=== PATIENT | female | born 1990 | race American Indian/Alaskan Native ===

== ENCOUNTER 2019-06-07 14:22 | Emergency (ER) | payer SELFPAY ==
--- NOTE | 2019-06-07 14:32 | Emergency Department Report ---
Blank Doc - Documentation Documentation: 29-year-old female that presents with syncopal episode with n/v and cough. This initial assessment/diagnostic orders/clinical plan/treatment(s) is/are subject to change based on patient's health status, clinical progression and re- assessment by fellow clinical providers in the ED. Further treatment and workup at subsequent clinical providers discretion. Patient/guardians urged not to elope from the ED as their condition may be serious if not clinically assessed and managed. Initial orders include: 1- Patient sent to [facility] for further evaluation and treatment 2- labs 3- EKG 4- CXR
[2019-06-07 14:33] VITALS: BP 116/85
[2019-06-07 15:17] LABS: Basophils % (Auto) 0.4 % (0.0-1.8); Eosinophils % (Auto) 0.5 % (0.0-4.3); Hematocrit 42.8 % (30.3-42.9); Hemoglobin 14.1 gm/dl (10.1-14.3); Lymphocytes # (Auto) 1.2 K/mm3 (1.2-5.4); Lymphocytes % (Auto) 16.7 % (13.4-35.0); Mean Corpuscular HGB Conc 33 % (30-34); Mean Corpuscular Volume 87 fl (79-97); Monocytes # (Auto) 0.6 K/mm3 (0.0-0.8); Platelet Count 242 K/mm3 (140-440); Red Blood Count 4.91 M/mm3 (3.65-5.03); Red Cell Distribution Width 14.6 % (13.2-15.2)
[2019-06-07 15:47] LABS: Alanine Aminotransferase 31 units/L (7-56); Albumin 4.5 g/dL (3.9-5); BUN/Creatinine Ratio 17; Blood Urea Nitrogen 12 mg/dL (7-17); Calcium 9.3 mg/dL (8.4-10.2); Hemolysis Index 12
--- NOTE | 2019-06-07 16:13 | XRay Report ---
CHEST 2 VIEWS INDICATION: sycnope. COMPARISON: None FINDINGS: Support devices: None. Heart: Within normal limits. Lungs/pleura: No acute air space or interstitial disease. No pneumothorax. Additional findings: None. IMPRESSION: Normal chest x-ray Signer Name: Ryan Lucas Jr, MD Signed: 06/07/2019 4:08 PM Workstation Name: [id number]
--- NOTE | 2019-06-07 18:31 | Emergency Department Report ---
Minor Respiratory - HPI Chief Complaint: Dizziness Stated Complaint: DIZZY/FAINTED TODAY Time Seen by Provider: 06/07/19 14:31 Duration: 2 Days Minor Respiratory: Yes Rhinorrhea, Yes Able to Tolerate Fluids, Yes Cough, Yes Sick Contacts (Healthcare worker), No Sore Throat, No Ear Pain, No Hemoptysis, No Chest Pain, No Shortness of Breath, No Fever Other History: This is a 29-year-old female here complaining of dizziness and that she fell today without any loss of consciousness. Denies any headache, blurred vision. She said she has dizziness this morning. She reports she has cough for 2 days. Denies any fever or chills. 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 Denies any sore throat or nausea vomiting. Patient reports that she is having allergy symptoms. She does have follow-up primary care. She denies any medical problems. Denies any shortness of breath or chest pain. Denies any nausea vomiting or diarrhea. Denies any abdominal or back pain. Last menstrual period 07/03/2012. Pain is 0/10 ED Review of Systems ROS: Stated complaint: DIZZY/FAINTED TODAY Other details as noted in HPI Constitutional: denies: chills, fever Eyes: denies: eye pain, eye discharge, vision change ENT: congestion (Nasal congestion and runny nose with postnasal drainage). denies: ear pain, throat pain, dental pain Respiratory: cough. denies: shortness of breath, SOB with exertion, SOB at rest, wheezing Cardiovascular: denies: chest pain, palpitations, dyspnea on exertion, edema, syncope Gastrointestinal: denies: abdominal pain, nausea, vomiting, diarrhea, hematemesis, hematochezia Genitourinary: denies: hematuria Musculoskeletal: denies: back pain, joint swelling, arthralgia, myalgia Skin: denies: rash Neurological: other (Dizziness this a.m.). denies: headache ED Past Medical Hx - Past Medical History Previous Medical History?: No Hx Hypertension: No Hx Congestive Heart Failure: No Hx Diabetes: No Hx Deep Vein Thrombosis: No Hx Renal Disease: No Hx Sickle Cell Disease: No Hx Seizures: No Hx Asthma: No Hx COPD: No Hx HIV: No - Surgical History Past Surgical History?: No - Social History Smoking Status: Never Smoker Substance Use Type: None - Medications Home Medications: Home Medications Medication Instructions Recorded Confirmed Last Taken Type Ferrous Sulfate [Feosol 325 MG tab] 325 mg PO BID #60 tablet 04/12/13 Unknown Rx Ibuprofen [Motrin 600 MG tab] 600 mg PO Q6HR #30 tablet 04/12/13 Unknown Rx Diphenoxylate HCl/Atropine 2 each PO QID PRN #12 tablet 05/13/14 Unknown Rx [Lomotil 2.5-0.025 mg Tablet] Promethazine [Phenergan] 25 mg PO Q6H PRN #20 tablet 05/13/14 Unknown Rx Cetirizine HCl [ZyrTEC] 10 mg PO QAM 10 Days #10 capsule 06/07/19 Unknown Rx Minor Respiratory Exam - Exam General: Vital signs noted. No distress. Alert and acting appropriately. This is a 29-year-old female well-nourished well-developed in no acute distress. Patient is nontoxic in appearance HEENT: Yes Moist Mucous Membranes, Yes Rhinorrhea (Pale nasal turbinates), No Pharyngeal Erythema, No Pharyngeal Exudates, No Conjuctival Injection, No Frontal Tenderness, No Maxillary Tenderness Ear: Neither TM Bulge (Bilateral middle ear congestion), Neither TM Erythema, Neither EAC Pain, Neither EAC Discharge Neck: Yes Supple, No Adenopathy Lungs: Yes Good Air Exchange, No Wheezes, No Ronchi, No Stridor, No Cough, No Labored Respirations, No Retractions, No Use of Accessory Muscles, No Other Abnormal Lung Sounds Heart: Yes Regular, No Murmur Abdomen: Yes Normal Bowel Sounds (Nontender to palpate in all quadrants), No Tenderness, No Peritoneal Signs Skin: No Rash, No Edema Neurologic: Alert and oriented, no deficits. Musculoskeletal: Unremarkable. ED Course Vital Signs 06/07/19 14:31 Temperature 98.0 F Pulse Rate 87 Respiratory 15 Rate Blood Pressure 116/85 O2 Sat by Pulse 99 Oximetry - Reevaluation(s) Reevaluation #1: 06/07/19 18:45 Patient stable throughout ED course. Vital signs stable she is afebrile and she is not in any distress. ED Medical Decision Making - Lab Data Result diagrams: 06/07/19 14:45 06/07/19 14:45 Lab Results 06/07/19 06/07/19 06/07/19 Range/Units 14:45 14:45 14:45 WBC 7.4 (4.5-11.0) K/mm3 RBC 4.91 (3.65-5.03) M/mm3 Hgb 14.1 (10.1-14.3) gm/dl Hct 42.8 (30.3-42.9) % MCV 87 (79-97) fl MCH 29 (28-32) pg MCHC 33 (30-34) % RDW 14.6 (13.2-15.2) % Plt Count 242 (140-440) K/mm3 Lymph % (Auto) 16.7 (13.4-35.0) % Wolfe % (Auto) 8.0 H (0.0-7.3) % Eos % (Auto) 0.5 (0.0-4.3) % Baso % (Auto) 0.4 (0.0-1.8) % Lymph # 1.2 (1.2-5.4) K/mm3 Wolfe # 0.6 (0.0-0.8) K/mm3 Eos # 0.0 (0.0-0.4) K/mm3 Baso # 0.0 (0.0-0.1) K/mm3 Seg Neutrophils % 74.4 H (40.0-70.0) % Seg Neutrophils # 5.5 (1.8-7.7) K/mm3 Sodium 140 (137-145) mmol/L Potassium 3.9 (3.6-5.0) mmol/L Chloride 99.6 (98-107) mmol/L Carbon Dioxide 26 (22-30) mmol/L Anion Gap 18 mmol/L BUN 12 (7-17) mg/dL Creatinine 0.7 (0.7-1.2) mg/dL Estimated GFR > 60 ml/min BUN/Creatinine Ratio 17 % Glucose 100 (65-100) mg/dL Calcium 9.3 (8.4-10.2) mg/dL Total Bilirubin 0.30 (0.1-1.2) mg/dL AST 26 (5-40) units/L ALT 31 (7-56) units/L Alkaline Phosphatase 65 (35-129) units/L Total Protein 7.8 (6.3-8.2) g/dL Albumin 4.5 (3.9-5) g/dL Albumin/Globulin Ratio 1.4 % Lipase (13-60) units/L HCG, Qual Negative (Negative) 06/07/19 Range/Units 14:45 WBC (4.5-11.0) K/mm3 RBC (3.65-5.03) M/mm3 Hgb (10.1-14.3) gm/dl Hct (30.3-42.9) % MCV (79-97) fl MCH (28-32) pg MCHC (30-34) % RDW (13.2-15.2) % Plt Count (140-440) K/mm3 Lymph % (Auto) (13.4-35.0) % Wolfe % (Auto) (0.0-7.3) % Eos % (Auto) (0.0-4.3) % Baso % (Auto) (0.0-1.8) % Lymph # (1.2-5.4) K/mm3 Wolfe # (0.0-0.8) K/mm3 Eos # (0.0-0.4) K/mm3 Baso # (0.0-0.1) K/mm3 Seg Neutrophils % (40.0-70.0) % Seg Neutrophils # (1.8-7.7) K/mm3 Sodium (137-145) mmol/L Potassium (3.6-5.0) mmol/L Chloride (98-107) mmol/L Carbon Dioxide (22-30) mmol/L Anion Gap mmol/L BUN (7-17) mg/dL Creatinine (0.7-1.2) mg/dL Estimated GFR ml/min BUN/Creatinine Ratio % Glucose (65-100) mg/dL Calcium (8.4-10.2) mg/dL Total Bilirubin (0.1-1.2) mg/dL AST (5-40) units/L ALT (7-56) units/L Alkaline Phosphatase (35-129) units/L Total Protein (6.3-8.2) g/dL Albumin (3.9-5) g/dL Albumin/Globulin Ratio % Lipase 17 (13-60) units/L HCG, Qual (Negative) - EKG Data -: EKG Interpreted by Me (Attending physician) EKG shows normal: sinus rhythm Rate: normal - EKG Data Interpretation: normal EKG (71 bpm) - Radiology Data Radiology results: report reviewed Chest x-ray dictated by radiologist and report reviewed by myself. No acute findings Findings [facility] [address] [place] [address] XRay Report Signed Patient: ELAN PAINTER MR#: [id number] : 1990 Acct:[id number] Age/Sex: 29 / F ADM Date: 06/07/19 Loc: ED Attending Dr: Ordering Physician: DEWAYNE MERCER NP Date of Service: 06/07/19 Procedure(s): XR chest routine 2V Accession Number(s): [id number] cc: DEWAYNE MERCER NP Fluoro Time In Minutes: CHEST 2 VIEWS INDICATION: sycnope. COMPARISON: None FINDINGS: Support devices: None. Heart: Within normal limits. Lungs/pleura: No acute air space or interstitial disease. No pneumothorax. Additional findings: None. IMPRESSION: Normal chest x-ray Signer Name: Ryan Mayo Jr, MD Signed: 06/07/2019 4:08 PM Workstation Name: [id number] Transcribed By: TTR Dictated By: RYAN MAYO JR, MD Electronically Authenticated By: RYAN MAYO JR, MD Signed Date/Time: 06/07/19 160 DD/ 160 TD/TT: - Medical Decision Making This is a 29-year-old female here for cough and dizziness. Physical findings normal exam except she has nasal turbinates pale with clear drainage and bilateral middle ear with effusion. EKG sinus rhythm at 71 bpm. Chest x-ray dictated by radiologist and reviewed by myself and no acute findings. CBC and chemistries normal. test is negative and urinalysis is stable. Patient with allergic rhinitis. I discussed diagnosis and treatment plan with her and for to follow-up with her primary care doctor and she voiced unders tanding. Discharged home with [facility]. - Differential Diagnosis PNA, bronchitis, URI with cough and congestion, sinusitis, rhinitis Critical care attestation.: If time is entered above; I have spent that time in minutes in the direct care of this critically ill patient, excluding procedure time. ED Disposition Clinical Impression: Cough in adult Rhinitis, allergic Qualifiers: Allergic rhinitis trigger: unspecified Allergic rhinitis seasonality: unspecified Qualified Code(s): J30.9 - Allergic rhinitis, unspecified Disposition: DC-01 TO HOME OR SELFCARE Is pt being admited?: No Does the pt Need Aspirin: No Condition: Stable Instructions: Allergic Rhinitis (ED), Acute Cough (ED) Additional Instructions: If your condition worsens, return to the emergency room please increase her fluid intake. Please follow up with your primary care physician as instructed a Please follow discharge instructions on allergic rhinitis and cough Take medication as instructed See information given on COVID-19. This is for your information Prescriptions: Cetirizine HCl [ZyrTEC] 10 mg PO QAM 10 Days #10 capsule Referrals: PRIMARY CAREMD [Primary Care Provider] - 06/11/19 Forms: Work/School Release Form(ED)
== END 2019-06-07 19:30 | disposition home or self-care (01) ==
LOC: ED 14:22
DX: J30.9 Allergic rhinitis, unspecified (principal); Z88.5 Allergy status to narcotic agent
CPT/HCPCS: 36415; 71046; 80053; 83690; 84703; 85025; 93005; 93010

== ENCOUNTER 2021-10-16 12:21 | Outpatient (CLI) | payer MEDICAID ==
[2021-10-16 13:14] VITALS: BP 113/56
[2021-10-16] MEDS ORDERED: ACETAMINOPHEN 500 MG TAB PO ONE (16:59)
[2021-10-16 19:29] LABS: Color,Urine Straw (Yellow)
[2021-10-16 19:30] LABS: Blood,Urine Negative (Negative); Protein,Urine <15 mg/dL mg/dL (Negative)
[2021-10-16 20:54] LABS: Bilirubin,Urine Negative (Negative)
== END 2021-10-16 19:50 | disposition home or self-care (01) ==
LOC: TRG 12:21 → APU 12:23 → TRG 19:50
PROVIDERS: ATTEND Obstetrics & Gynecology
DX: O47.02 False labor before 37 completed weeks of gestation, second trimester (principal); Z3A.18 18 weeks gestation of pregnancy
CPT/HCPCS: 81001; 87086